=== PATIENT | male | born 1970 | race Hispanic/Latino ===

== ENCOUNTER 2022-06-10 12:35 | Observation (INO) | payer OTHER ==
[2022-06-10 13:19] VITALS: BMI 33.3
[2022-06-10] MEDS ORDERED: Ondansetron ODT 4 MG TAB PO PRN (13:27)
[2022-06-10] MEDS ORDERED: Ondansetron PF 4 MG/2 ML Vial IVP PRN (13:27)
[2022-06-10] MEDS ORDERED: Acetaminophen 325 MG TAB PO PRN (13:27)
[2022-06-10 13:51] LABS: Magnesium 1.9 mg/dL (1.6-2.6)
[2022-06-10] MEDS ORDERED: Ibuprofen 600 MG TAB PO PRN (16:13)
[2022-06-10] MEDS: Carvedilol 12.5 MG TAB PO SCH (16:34)
[2022-06-10] MEDS ORDERED: Morphine 2 MG/ML VIAL SLOW IVP SCH (17:00)
[2022-06-10] MEDS ORDERED: ALPRAZolam 0.5 MG TAB PO SCH (17:00)
[2022-06-10] MEDS ORDERED: DULoxetine 30 MG CAP PO SCH (18:30)
[2022-06-10 19:06] LABS: Troponin I Less than 0.010 ng/mL (< 0.028)
[2022-06-10 20:07] LABS: Hemoglobin A1c 5.6 % (4.0-6.0)
[2022-06-10] MEDS: Benztropine 1 MG TAB PO SCH (20:40)
[2022-06-10] MEDS: Atorvastatin Calcium 40 MG TAB PO SCH (20:40)
[2022-06-10] MEDS: Ziprasidone 20 MG CAP PO SCH (20:47)
[2022-06-10] MEDS ORDERED: Zolpidem Tartrate 5 MG TAB PO PRN (22:25)
[2022-06-11 04:33] LABS: #Monocytes 0.4 10x3/uL (0.0-1.1); %Basophils 0.2 % (0.0-2.0); %Eosinophils 0.4 % (0.0-6.0); %Monocytes 6.3 % (0.0-10.0); %Neutrophils 70.7 % (40.0-75.0); Mean Corpuscular HGB CONC 35.1 g/dL (32.0-36.0); Mean Corpuscular Hemoglobin 30.5 pg (27.0-33.0); Mean Corpuscular Volume 86.8 fl (81.2-95.1); Mean Platelet Volume 10.2 fl (7.4-10.4); Platelet Count 170 10x3/uL (150-450); RBC Distribution Width 12.6 % (11.5-14.5); Red Blood Cell (RBC) Count 4.92 10x6/uL (4.32-5.72); White Blood Cell (WBC) Count 5.6 10x3/uL (3.5-10.5)
[2022-06-11 04:45] LABS: Anion Gap 11 mmol/L (10-20); BUN (Urea Nitrogen) 11 mg/dL (8.4-25.7); Calc. Creatinine Clearance 159 mL/min (70-130); Calcium 8.8 mg/dL (7.8-10.44); Carbon Dioxide 27 mmol/L (22-29); Chloride 102 mmol/L (98-107); Estimated GFR 107; Glucose 201 mg/dL (70-105); Sodium 136 mmol/L (136-145)
[2022-06-11] MEDS: Nitroglycerin 0.4 MG TAB (25 Tab Bottle) SL PRN ×2 (09:00→09:12)
[2022-06-11] MEDS ORDERED: DULoxetine 60 MG CAP PO SCH (09:00)
[2022-06-11] MEDS: Ziprasidone 20 MG CAP PO SCH ×2 (09:03→21:59)
[2022-06-11] MEDS: FLUoxetine HCl 20 MG CAP PO SCH (09:03)
[2022-06-11] MEDS: Benztropine 1 MG TAB PO SCH ×2 (09:04→21:58)
[2022-06-11] MEDS: Amlodipine 5 MG TAB PO SCH (09:05)
[2022-06-11] MEDS: Aspirin Chewable 81 MG TAB PO SCH (09:05)
[2022-06-11] MEDS: DULoxetine 30 MG CAP PO SCH (09:05)
[2022-06-11] MEDS: Carvedilol 12.5 MG TAB PO SCH ×3 (09:05→18:36)
[2022-06-11] MEDS: Hydrochlorothiazide 25 MG TAB PO SCH (09:06)
[2022-06-11] MEDS ORDERED: ALPRAZolam 0.5 MG TAB PO SCH (10:00)
[2022-06-11] MEDS: Atorvastatin Calcium 40 MG TAB PO SCH (21:59)
[2022-06-12 05:05] LABS: #Monocytes 0.6 10x3/uL (0.0-1.1); #Neutrophils 3.4 10x3/uL (1.5-8.4); %Basophils 0.2 % (0.0-2.0); %Eosinophils 0.7 % (0.0-6.0); %Lymphocytes 31.8 % (18.0-47.0); %Monocytes 9.6 % (0.0-10.0); %Neutrophils 57.5 % (40.0-75.0); Hemoglobin 15.5 g/dL (13.5-17.5); Mean Corpuscular HGB CONC 35.1 g/dL (32.0-36.0); Mean Corpuscular Hemoglobin 30.7 pg (27.0-33.0); Mean Corpuscular Volume 87.3 fl (81.2-95.1); Mean Platelet Volume 10.2 fl (7.4-10.4); Platelet Count 158 10x3/uL (150-450); RBC Distribution Width 12.9 % (11.5-14.5); Red Blood Cell (RBC) Count 5.05 10x6/uL (4.32-5.72); White Blood Cell (WBC) Count 5.8 10x3/uL (3.5-10.5)
[2022-06-12 05:19] LABS: Anion Gap 12 mmol/L (10-20); BUN (Urea Nitrogen) 12 mg/dL (8.4-25.7); Calc. Creatinine Clearance 161 mL/min (70-130); Calcium 9.2 mg/dL (7.8-10.44); Carbon Dioxide 29 mmol/L (22-29); Chloride 102 mmol/L (98-107); Estimated GFR 107; Glucose 117 mg/dL (70-105); Potassium 3.6 mmol/L (3.5-5.1); Sodium 139 mmol/L (136-145)
[2022-06-12] MEDS: Aspirin Chewable 81 MG TAB PO SCH (08:48)
[2022-06-12] MEDS: Ziprasidone 20 MG CAP PO SCH (08:48)
[2022-06-12] MEDS: Carvedilol 12.5 MG TAB PO SCH (08:48)
[2022-06-12] MEDS: Benztropine 1 MG TAB PO SCH (08:48)
[2022-06-12] MEDS: DULoxetine 30 MG CAP PO SCH (08:49)
[2022-06-12] MEDS: FLUoxetine HCl 20 MG CAP PO SCH (08:49)
[2022-06-12] MEDS: Hydrochlorothiazide 25 MG TAB PO SCH (08:49)
[2022-06-12] MEDS: Amlodipine 5 MG TAB PO SCH (08:49)
[2022-06-12 09:47] VITALS: BP 128/77; TEMP 98.6
== END 2022-06-12 12:30 | disposition home or self-care (01) ==
LOC: EEVIPCON 12:35 → CSHTELE 12:35 → INTOOBSV 12:35
PROVIDERS: ADMIT Family Medicine; ATTEND Family Medicine
DX: R07.9 Chest pain, unspecified (principal); F41.9 Anxiety disorder, unspecified; E11.9 Type 2 diabetes mellitus without complications; I10 Essential (primary) hypertension; I25.2 Old myocardial infarction; I25.10 Atherosclerotic heart disease of native coronary artery without angina pectoris; E78.5 Hyperlipidemia, unspecified; J45.909 Unspecified asthma, uncomplicated; Z79.82 Long term (current) use of aspirin; Z79.899 Other long term (current) drug therapy; Z79.84 Long term (current) use of oral hypoglycemic drugs; Z88.8 Allergy status to other drugs, medicaments and biological substances; Z95.1 Presence of aortocoronary bypass graft; Z90.49 Acquired absence of other specified parts of digestive tract
CPT/HCPCS: 36415; 80048; 83036; 83735; 84443; 85025; 93306; 94760; 96372; 96374; 96375; G0378; J1650; J2272; J2405